=== PATIENT | female | born 1985 | race Caucasian/White ===

== ENCOUNTER 2017-05-12 18:18 | Emergency (ER) | payer OTHER ==
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
[2017-05-12] MEDS ORDERED: TDAP ADULT 0.5 ML INJ (BOOSTRIX) IM ONE (19:06)
[2017-05-12] MEDS ORDERED: NS 1,000 ML IV ONE (20:09)
[2017-05-12] MEDS ORDERED: KETOROLAC 30 MG/1 ML SDV IVP ONE (20:55)
[2017-05-12] MEDS ORDERED: OXYCODONE/APAP 5/325MG PREPACK#4 BTL TAKEHOME ONE (21:26)
[2017-05-12 21:50] VITALS: BP 124/68; PULSE 70; RESP 18; TEMP 97.9; O2SAT 95
== END 2017-05-12 21:50 | disposition home or self-care (01) ==
LOC: EDUNIT#
PROC: 0HQ1XZZ Repair Face Skin, External Approach (ICD-10-PCS; principal; 2017-05-12)
DX: S43.101A Unspecified dislocation of right acromioclavicular joint, initial encounter (principal); S01.81XA Laceration without foreign body of other part of head, initial encounter; S80.212A Abrasion, left knee, initial encounter; S40.211A Abrasion of right shoulder, initial encounter; E86.9 Volume depletion, unspecified; Z23 Encounter for immunization; V11.4XXA Pedal cycle driver injured in collision with other pedal cycle in traffic accident, initial encounter; Y99.8 Other external cause status; Y93.55 Activity, bike riding
CPT/HCPCS: 96374; J1885